=== PATIENT | male | born 1990 | race Caucasian/White ===

== ENCOUNTER 2020-04-07 05:13 | Emergency (ER) | payer MEDICARE ==
[~2020-04-07] VITALS: Ht 193 cm; Wt 118.2 kg
[2020-04-07 05:15] VITALS: BP 152/108
[2020-04-07 06:37] LABS: HIV ANTIBODY 1&2 RAPID NON-REACTIVE (Neg)
[2020-04-08 11:38] LABS: HBSAG SCREEN Negative (Negative); HEPATITIS C ANTIBODY <0.1 s/co ratio (0.0-0.9)
== END 2020-04-07 05:57 | disposition home or self-care (01) ==
LOC: ER 05:15
DX: Z77.21 Contact with and (suspected) exposure to potentially hazardous body fluids (principal)
CPT/HCPCS: 36415; 86703; 86706; 86803; 87340; 99283